=== PATIENT | male | born 2000 | race Caucasian/White ===

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

== ENCOUNTER 2019-01-02 12:09 | Emergency (ER) | payer MEDICAID | END 2019-01-02 14:55 | disposition home or self-care (01) | LOC: FTE 12:09 | DX: Z48.02 Encounter for removal of sutures (principal) | CPT/HCPCS: 99281; Z7502 ==